=== PATIENT | male | born 1960 | race Two or more races ===

== ENCOUNTER 2024-09-08 07:22 | Inpatient (IN) | payer BC ==
[~2024-09-08] VITALS: Ht 170.2 cm; Wt 97.4 kg
[2024-09-08 08:57] LABS: Basophils # (auto) 0 10 ^3/uL (0-0.2); Basophils % (auto) 1.2 % (0.0-2.0); Eosinophils # (auto) 0.2 10 ^3/uL (0-0.8); Eosinophils % (auto) 6.1 % (0.0-7.0); Hematocrit 46.8 % (41.0-53.0); Hemoglobin 16.1 g/dL (13.5-17.5); Lymphocytes # (auto) 1.1 10 ^3/uL (0.4-5.4); Lymphocytes % (auto) 26.2 % (10.0-50.0); Mean Corpuscular Hemoglobin 28.8 pg (28.0-32.0); Mean Corpuscular Hgb Conc. 34.4 g/dL (32.0-36.0); Mean Corpuscular Volume 83.7 fL (80.0-100.0); Monocytes # (auto) 0.4 10 ^3/uL (0-1.3); Neutrophils # (auto) 2.4 10 ^3/uL (1.6-8.6); Neutrophils % (auto) 57.5 % (37.0-80.0); Nucleated Red Blood Cells % 0.1 %; Platelet Count (auto) 299 10^3/uL (140-450); Red Cell Distribution Width 13.5 % (11.8-14.3); White Blood Cell 4.1 10^3/uL (4.4-10.8)
[2024-09-08 09:04] LABS: Urine Bacteria None Seen /hpf (None Seen)
[2024-09-08 09:08] LABS: Chloride 106 mmol/L (98-107); Potassium 3.8 mmol/L (3.5-5.1); Sodium 143 mmol/L (136-145)
[2024-09-08 09:09] LABS: Anion Gap 10 (5-15); Calcium 9.7 mg/dL (8.7-10.4); Carbon Dioxide 27 mmol/L (20-31)
--- NOTE | 2024-09-08 09:09 | ED.PDOC ---
Musculoskeletal HPI Comments 64 year old male with a Hx of CVA, and, lEa-Renee was BIB for the c/c of Left Arm tingling and Numbness. Pt states his symptoms have been onset for the past 3x days. Pt also notes on currently having some chest pressure, being light headed and blurry vision. No other associated symptoms, modifiers, recent injuries or sick contacts present at this time. Chief Complaint: Upper Extremity Time Seen by MD: 09:04 Reviewed Notes: Nurses Notes, Medications, Allergies Allergies: Coded Allergies: NO KNOWN ALLERGIES (Unverified , 09/08/24) Information Source: Patient, Spouse Mode of Arrival: Ambulatory Location: Left Extremity Location: Arm Timing: Days Prehospital treatment: None Severity: Mild Able to Move Extremity: Yes Bear Weight: Fully Pain: Mild Hand Dominance: Right Mechanism: None Circumstances: Other Onset of Symptoms: Spontaneous Symptoms: Pain DVT Risk Factors: NONE Last Tetanus: Unknown Associated signs and symptoms: Arm pain, Weakness, SOB, Chest pain Past Medical History PAST MEDICAL HISTORY: CVA Surgical History: Denies all surgeries Family History Family History: Reviewed,noncontributory to illness, No family hx of Cancer, No family hx of DM, No family hx of Heart camila, No family hx of HTN, No family hx ofKidney camila, No family hx of Liver camila, No family hx of Lung camila, No family hx of Stroke Social History Smoker: Non-Smoker Alcohol: Denies ETOH Use Drugs: Denies Drug Use Lives In: Home Constitutional: denies: chills, diaphoresis, fatigue, fever, malaise, sweats, weakness, others EENTM: reports: blurred vision; denies: double vision, ear bleeding, ear discharge, ear drainage, ear pain, ear ringing, eye pain, eye redness, hearing loss, mouth pain, mouth swelling, nasal discharge, nose bleeding, nose congestion, nose pain, photophobia, tearing, throat pain, throat swelling, voice changes, others Respiratory: denies: cough, hemoptysis, orthopnea, SOB at rest, shortness of breath, SOB with excertion, stridor, wheezing, others Cardiovascular: denies: chest pain, dizzy spells, diaphoresis, Dyspnea on exertion, edema, irregular heart beat, left arm pain, lightheadedness, pal pitations, PND, syncope, others Gastrointestinal: denies: abdomen distended, abdominal pain, blood streaked bowels, constipated, diarrhea, dysphagia, difficulty swallowing, hematemesis, melena, nausea, poor appetite, poor fluid intake, rectal bleeding, rectal pain, vomiting, others Genitourinary: denies: burning, dysuria, flank pain, frequency, hematuria, incontinence, penile discharge, penile sore, pain, testicle pain, testicle swelling, urgency, others Neurological: reports: headache, others (light headed); denies: dizziness, fainting, left sided numbness, left sided weakness, numbness, paresthesia, pre- existing deficit, right sided numbness, right sided weakness, seizure, speech problems, tingling, tremors, weakness Musculoskeletal: denies: back pain, gout, joint pain, joint swelling, muscle pain, muscle stiffness, neck pain, others Integumetry: denies: bruises, change in color, change in hair/nails, dryness, laceration, lesions, lumps, rash, wounds, others Allergic/Immunocompromised: denies: Difficulty Healing, Frequent Infections, Hives, Itching, others Hematologic/Lymphatic: denies: anemia, blood clots, easy bleeding, easy bruising, swollen glands, others Endocrine: denies: excessive hunger, excessive sweating, excessive thirst, excessive urination, flushing, intolerance to cold, intolerance to heat, unexplained weight gain, unexplained weight loss, others Psychiatric: denies: anxiety, bipolar disorder, depression, hopeless, panic disorder, schizophrenia, sleepless, suicidal, others All Other Systems: Reviewed and Negative Physical Exam General Appearance: Mild Distress, Normal, Obese HEENT: Normal ENT Inspection, Pharynx Normal, TMs Normal Neck: Full Range of Motion, Non-Tender, Normal Respiratory: Chest Non-Tender, Lungs Clear, No Respiratory Distress, Normal Breath Sounds Cardiovascular: No Edema, No JVD, No Murmur, Normal Peripheral Pulses, Regular Rate/Rhythm Breast Exam: Deferred Gastrointestinal: Non Tender, No Pulsatile Mass, Normal Bowel Sounds, Soft Genitalia: Deferred Pelvic: Deferred Rectal: Deferred Extremities: No calf tenderness, Normal range of motion, Non-tender, No pedal edema Musculoskeletal : Apperance: Normal Neurologic: Alert, No Motor Deficits, Normal Mood Cerebellar Function: Normal Reflexes: Normal Skin: Dry, Normal Color, Warm Lymphatic: No Adenopathy Was a procedure done? Was a procedure done?: No Differential Diagnosis EXT Differential Diagnosis: CHF, Myocardial Infarction, Septic X-Ray, Labs, Meds, VS Vital Signs Date Time Temp Pulse Resp B/P (MAP) Pulse Ox O2 Delivery O2 Flow Rate FiO2 09/08/24 09:05 55 18 96 Room Air 09/08/24 09:05 98.4 55 18 169/94 (119) 96 98.4 09/08/24 08:10 98.6 56 18 162/87 (112) 95 98.6 Lab Test 09/08/24 09:47 09/08/24 08:47 09/08/24 08:35 Range/Units Troponin I High Sensitivity 15 17 </=54 ng/L White Blood Count 4.1 L 4.4-10.8 10^3/uL Red Blood Count 5.60 4.5-5.90 10^6/uL Hemoglobin 16.1 13.5-17.5 g/dL Hematocrit 46.8 41.0-53.0 % Mean Corpuscular Volume 83.7 80.0-100.0 fL Mean Corpuscular Hemoglobin 28.8 28.0-32.0 pg Mean Corpuscular Hemoglobin Concent 34.4 32.0-36.0 g/dL Red Cell Distribution Width 13.5 11.8-14.3 % Platelet Count 299 140-450 10^3/uL Mean Platelet Volume 8.1 6.9-10.8 fL Neutrophils (%) (Auto) 57.5 37.0-80.0 % Lymphocytes (%) (Auto) 26.2 10.0-50.0 % Monocytes (%) (Auto) 9.0 0.0-12.0 % Eosinophils (%) (Auto) 6.1 0.0-7.0 % Basophils (%) (Auto) 1.2 0.0-2.0 % Neutrophils # (Auto) 2.4 1.6-8.6 10 ^3/uL Lymphocytes # (Auto) 1.1 0.4-5.4 10 ^3/uL Monocytes # (Auto) 0.4 0-1.3 10 ^3/uL Eosinophils # (Auto) 0.2 0-0.8 10 ^3/uL Basophils # (Auto) 0 0-0.2 10 ^3/uL Nucleated Red Blood Cells 0.1 % Sodium Level 143 136-145 mmol/L Potassium Level 3.8 3.5-5.1 mmol/L Chloride Level 106 98-107 mmol/L Carbon Dioxide Level 27 20-31 mmol/L Anion Gap 10 5-15 Blood Urea Nitrogen 13 9-23 mg/dL Creatinine 1.23 0.700-1.30 mg/dL Glomerular Filtration Rate Calc 66 >90 mL/min BUN/Creatinine Ratio 10.6 10.0-20.0 Serum Glucose 105 74-106 mg/dL Calcium Level 9.7 8.7-10.4 mg/dL Urine Color Light-yellow Yellow Urine Clarity Clear Clear Urine pH 5.5 5.0-9.0 Urine Specific [place] 1.022 1.001-1.035 Urine Protein Negative Negative Urine Ketones Negative Negative Urine Blood Negative Negative /uL Urine Nitrite Negative Negative Urine Bilirubin Negative Negative Urine Urobilinogen Normal Negative mg/dL Urine Leukocyte Esterase Negative Negative /uL Urine RBC 4 0 - 3 /hpf Urine Microscopic WBC 3 0-3 /HPF Urine Squamous Epithelial Cells None seen <5 /hpf Urine Calcium Oxalate Crystals Few None Seen Urine Bacteria None seen None Seen /hpf Urine Glucose Normal Normal mg/dL Time of 1ST Reevaluation: 09:35 Reevaluation 1ST: Unchanged Patient Education/Counseling: Diagnosis, Treatment Family Education/Counseling: Diagnosis, Treatment Departure 1 Departure Time of Disposition: 10:27 (Patient presents with left arm numbness and tingling concerning for possible TIA or CVA. Patient's workup so far is benign including benign labs and benign CT scan. We will admit patient for further workup and expert consultation) Impression: Primary Impression: Arm paresthesia, left Additional Impressions: Left-sided chest pain Left-sided headache Disposition: ADMITTED INPATIENT Admit to: Med Surg Condition: Guarded Critical Care Note Critical Care Time?: Yes Critical care comment: Concern for CVA Authorized and Performed by: Steve Thorpe MD Total critical care time: Approximately 42 minutes Due to a high probability of clinically significant, life threatening deterioration, the patient required my highest level of preparedness to intervene emergently and I personally spent this critical care time directly and personally managing the patient. This critical care time included obtaining a history; examining the patient; pulse oximetry; ordering and review of studies; arranging urgent treatment with development of a management plan; evaluation of patient's response to treatment; frequent reassessment; and, discussions with other providers. This critical care time was performed to assess and manage the high probability of imminent, life-threatening deterioration that could result in multi-organ failure. It was exclusive of separately billable procedures and treating other patients and teaching time. Please see my other sections and the rest of the note for further information on patient assessment and treatment. Stability Stability form required: No Heart Score Heart Score: Heart Score Response (Comments) Value History N/A 0 EKG N/A 0 Age N/A 0 Risk Factors N/A 0 Troponin N/A 0 Total 0 I personally scribed for STEVE THORPE MD ([email or web address]) on 09/08/24 at 09:09. Electronically submitted by Kirill Vincent ([email or web address]). STEVE THORPE MD Sep 08, 2024 09:09
[2024-09-08 09:14] LABS: BUN/Creatinine Ratio 10.6 (10.0-20.0); Blood Urea Nitrogen 13 mg/dL (9-23); Glucose 105 mg/dL (74-106)
--- NOTE | 2024-09-08 09:21 | DVH ---
CHEST RADIOGRAPH Indication: dizziness Technique: Single frontal view of the chest was obtained COMPARISON: None FINDINGS: Lines and Tubes: None Lungs: Clear Pleura: No effusion. No pneumothorax. Cardiomediastinal contours: Unremarkable Bones: Unremarkable IMPRESSION: No acute disease.
--- NOTE | 2024-09-08 09:27 | DVH ---
EXAM: CT HEAD WITHOUT CONTRAST INDICATION: dizziness TECHNIQUE: CT of the head without intravenous contrast. Radiation Dose Information: CT Dose: CTDI volume is 57.57 mGy. Dose-length product is 1037.9 mGy*cm The dose indicators for CT are the volume Computed Tomography (CT) Dose Index (CTDIvol) and the Dose Length Product (DLP), and are measured in units of mGy and mGy-cm, respectively. These indicators are not patient dose, but values generated from the CT scanner acquisition factors. The report includes radiation exposure data for exposures received during this examination. COMPARISON: None FINDINGS: There is no evidence of acute intracranial hemorrhage, extra-axial collection, mass effect, midline s hift, herniation or hydrocephalus. The ventricles, sulci and cisterns are age appropriate. The cervantes-white differentiation is intact. Patchy periventricular and subcortical white matter hypoattenuation is nonspecific but may be related to small vessel ischemic disease. The visualized paranasal sinuses and mastoid air cells are clear. The surrounding soft tissues and osseous structures are unremarkable. IMPRESSION: No acute intracranial abnormality.
[2024-09-08 09:29] LABS: Urine Blood Negative /uL (Negative); Urine Clarity Clear (Clear); Urine Color Light-Yellow (Yellow); Urine Protein, UAD Negative (Negative); Urine Specific Gravity 1.022 (1.001-1.035); Urine Squamous Epithelial Cell None Seen /hpf (<5); Urine Urobilinogen Normal (Negative); Urine WBC 3 /HPF (0-3); Urine pH 5.5 (5.0-9.0)
[2024-09-08] MEDS ORDERED: DOCUSATE SOD 100 MG CAP PO PRN (13:00)
[2024-09-08] MEDS ORDERED: ONDANSETRON HCL 4 MG/2 ML VIAL IV PRN (13:00)
[2024-09-08] MEDS ORDERED: MORPHINE SULFATE INJ 2 MG/ml SYRG IV PRN (13:00)
[2024-09-08] MEDS ORDERED: NITROGLYCERIN 0.4 MG SL TAB SL PRN (13:00)
[2024-09-08] MEDS ORDERED: AMLO1TAB22 PO (13:03)
[2024-09-08] MEDS ORDERED: LEVO-849 PO (13:03)
[2024-09-08] MEDS ORDERED: AMOX500T92 PO (13:03)
[2024-09-08] MEDS ORDERED: LISI40TA16 PO (13:03)
[2024-09-08] MEDS ORDERED: PRAV20TA3 PO (13:03)
--- NOTE | 2024-09-08 13:20 | DVHHP2 ---
History of Present Illness Reason for Visit: left arm numbness and tingling History of Present Illness Bubba Menchaca is a 64-year-old male with past medical history of hypertension, hyperlipidemia, CVA, and hypothyroidism, who came in with complaints of left arm numbness and tingling. Patient states he has been experiencing the numbness and tingling for about 3 days. He has also been experiencing intermittent headaches, and blurred vision. Patient's blood pressure has been elevated while in ER, he states he took his normal home medications. Cardiovascular: HTN, hyperipidemia [employer]: CVA Endocrine: Hypothyroidism Past Surgical History: Other (Prstate surgery) Smoke: No ALCOHOL: none Drugs: None Lives: with Family Domestic Violence: Neg Review of Systems Constitutional: Yes: Other (headache); No: Fever, Chills, Sweats, Weakness, Malaise Eyes: No: Pain, Vision change, Conjunctivae inflammation, Eyelid inflammation, Other, Redness ENT: No: Ear pain, Ear discharge, Nose pain, Nose discharge, Nose congestion, Mouth pain, Mouth swelling, Throat pain, Throat swelling, Other Respiratory: No: Cough, Dry, Shortness of breath, SOB with excertion, Wheezing, Hemoptysis, Pleuritic Pain, Sputum, Wheezing, Other Cardiovascular: No: Chest Pain, Palpitations, Orthopnea, Paroxysmal Noc. Dyspnea, Edema, Lt Headedness, Other Gastrointestinal: No: Nausea, Vomiting, Abdominal Pain, Diarrhea, Constipation, Melena, Hematochezia, Other Genitourinary: No Dysuria, No Frequency, No Incontinence, No Hematuria, No Retention, No Other Musculoskeletal: No: other, neck pain, shoulder pain, arm pain, back pain, hand pain, leg pain, foot pain Skin: No: Rash, Lesions, Jaundice, Bruising, Other Neurological: Numbness (left arm); No: Weakness, Incoordination, Change in speech, Confusion, Seizures, Other Allergies: Coded Allergies: NO KNOWN ALLERGIES (Unverified , 09/08/24) Medications Current Medications Medications Dose Ordered Sig/Josias Route Start Time Stop Time Status Last Admin Dose Admin Acetaminophen/ Hydrocodone Bitart 1 tab Q4HP PRN PO 09/08/24 13:00 UNV Ondansetron HCl 4 mg Q4HP PRN IV 09/08/24 13:00 UNV Docusate Sodium 100 mg BIDPRN PRN PO 6/17/25 13:00 UNV Acetaminophen 650 mg Q6HP PRN PO 09/08/24 13:00 UNV Nitroglycerin 0.4 mg Q5MINP PRN SL 09/08/24 13:00 UNV Morphine Sulfate 2 mg Q30M PRN IV 09/08/24 13:00 UNV Amlodipine Besylate 5 mg DAILY PO 09/09/24 10:00 UNV Amoxicillin/ Clavulanate Potassium 500 mg TID PO 09/08/24 14:00 UNV Levothyroxine Sodium 100 mcg DAILY PO 09/09/24 10:00 UNV Pravastatin Sodium 40 mg HS PO 09/08/24 22:00 UNV Patient Own Medication 1 tab DAILY PO 09/09/24 10:00 UNV Exam Vital Signs Vital Signs Date Time Temp Pulse Resp B/P (MAP) Pulse Ox O2 Delivery O2 Flow Rate FiO2 09/08/24 11:12 97.9 50 16 180/95 (123) 96 97.9 09/08/24 09:05 Room Air General Appearance: Alert, Oriented X3, Cooperative HEENT: Atraumatic, PERRLA, EOMI Respiratory: Clear to auscultation, Normal air movement Cardiovascular: Regular rate, Normal S1, Normal S2, No murmurs Abdominal: Normal bowel sounds, Soft, No tenderness, No hepatospenomegaly Extremities: No clubbing, No cyanosis, No edema, Normal pulses, No tenderness/swelling, Other (left arm numbness and tingling) Skin: No rashes, No breakdown, No significant lesion Neuro: Normal gait, Normal speech, Strength at 5/5 X4 ext, Normal tone, Sensation intact Psych/Mental Status: Mental status NL, Mood NL Labs/Xrays Labs Test 09/08/24 11:57 09/08/24 08:47 09/08/24 08:35 Range/Units Troponin I High Sensitivity 14 </=54 ng/L White Blood Count 4.1 L 4.4-10.8 10^3/uL Red Blood Count 5.60 4.5-5.90 10^6/uL Hemoglobin 16.1 13.5-17.5 g/dL Hematocrit 46.8 41.0-53.0 % Mean Corpuscular Volume 83.7 80.0-100.0 fL Mean Corpuscular Hemoglobin 28.8 28.0-32.0 pg Mean Corpuscular Hemoglobin Concent 34.4 32.0-36.0 g/dL Red Cell Distribution Width 13.5 11.8-14.3 % Platelet Count 299 140-450 10^3/uL Mean Platelet Volume 8.1 6.9-10.8 fL Neutrophils (%) (Auto) 57.5 37.0-80.0 % Lymphocytes (%) (Auto) 26.2 10.0-50.0 % Monocytes (%) (Auto) 9.0 0.0-12.0 % Eosinophils (%) (Auto) 6.1 0.0-7.0 % Basophils (%) (Auto) 1.2 0.0-2.0 % Neutrophils # (Auto) 2.4 1.6-8.6 10 ^3/uL Lymphocytes # (Auto) 1.1 0.4-5.4 10 ^3/uL Monocytes # (Auto) 0.4 0-1.3 10 ^3/uL Eosinophils # (Auto) 0.2 0-0.8 10 ^3/uL Basophils # (Auto) 0 0-0.2 10 ^3/uL Nucleated Red Blood Cells 0.1 % Sodium Level 143 136-145 mmol/L Potassium Level 3.8 3.5-5.1 mmol/L Chloride Level 106 98-107 mmol/L Carbon Dioxide Level 27 20-31 mmol/L Anion Gap 10 5-15 Blood Urea Nitrogen 13 9-23 mg/dL Creatinine 1.23 0.700-1.30 mg/dL Glomerular Filtration Rate Calc 66 >90 mL/min BUN/Creatinine Ratio 10.6 10.0-20.0 Serum Glucose 105 74-106 mg/dL Calcium Level 9.7 8.7-10.4 mg/dL Urine Color Light-yellow Yellow Urine Clarity Clear Clear Urine pH 5.5 5.0-9.0 Urine Specific [place] 1.022 1.001-1.035 Urine Protein Negative Negative Urine Ketones Negative Negative Urine Blood Negative Negative /uL Urine Nitrite Negative Negative Urine Bilirubin Negative Negative Urine Urobilinogen Normal Negative mg/dL Urine Leukocyte Esterase Negative Negative /uL Urine RBC 4 0 - 3 /hpf Urine Microscopic WBC 3 0-3 /HPF Urine Squamous Epithelial Cells None seen <5 /hpf Urine Calcium Oxalate Crystals Few None Seen Urine Bacteria None seen None Seen /hpf Urine Glucose Normal Normal mg/dL CHEST RADIOGRAPH FINDINGS: Lines and Tubes: None Lungs: Clear Pleura: No effusion. No pneumothorax. Cardiomediastinal contours: Unremarkable Bones: Unremarkable IMPRESSION: No acute disease. EXAM: CT HEAD WITHOUT CONTRAST FINDINGS: There is no evidence of acute intracranial hemorrhage, extra-axial collection, mass effect, midline shift, herniation or hydrocephalus. The ventricles, sulci and cisterns are age appropriate. The cervantes-white differentiation is intact. Patchy periventricular and subcortical white matter hypoattenuation is nonspecific but may be related to small vessel ischemic disease. The visualized paranasal sinuses and mastoid air cells are clear. The surrounding soft tissues and osseous structures are unremarkable. IMPRESSION: No acute intracranial abnormality. Assessment/Plan Assessment/Plan Assessment: Arm paresthesia, left, Uncontrolled hypertension, Headache, Hypothyroidism, Plan: Admit to Tele, CT cervical neck, Continue PO antibiotics from dental work patient had completed yesterday, Monitor on Tele for any atrial fibrillation, TSH, PRN antihypertensives, Home medications reconciled, Plan discussed with: Patient, Spouse My Orders Orders - GERSON SEVILLA Procedure Category Date Status Time Admit ADMIT 09/08/24 Transmitted 12:56 Code Status CODE 09/08/24 Transmitted 12:56 2 Gm Sodium Diet DIET 09/08/24 Transmitted Lunch Hydrocodone-Acet PHA 09/08/24 Logged 5/325mg Tab (Kemp 13:00 Ondansetron Hcl PHA 09/08/24 Logged (Zofran) 13:00 Docusate Sodium PHA 09/08/24 Logged Capsule (Colace 13:00 Complete Blood Count LAB 09/09/24 Verified 04:00 Comprehensive LAB 09/09/24 Verified Metabolic Panel 04:00 Condition: Serious [facility] 09/08/24 In Process 12:56 Acetaminophen Tablet [facility] 09/08/24 Logged (Tylenol Tablet) 13:00 Nitroglycerin PHA 09/08/24 Logged Sublingual (Ntrostat 13:00 Morphine Sulfate PHA 09/08/24 Logged Injection 13:00 Stat Ekg For Chest [facility] 09/08/24 In Process Pain 12:56 Notify Md Of Changes [facility] 09/08/24 In Process From Base 12:56 Bowling Ball Finisher For [facility] 09/08/24 In Process 24 Hours 12:56 Emergency Dysrhythmia [facility] 09/08/24 In Process Protocol 12:56 Rhythm Strips Once [facility] 09/08/24 In Process Every Shift 12:56 Oxygen By Nasal RT 09/08/24 Transmitted Cannula 12:56 Amlodipine Tablet [facility] 09/09/24 Logged (Norvasc Tablet) 10:00 Amoxicillin/Clavulanate PHA 09/08/24 Logged Tablet (Augmenti 14:00 Levothyroxine Tablet [facility] 09/09/24 Logged (Synthroid Tablet) 10:00 Pravastatin Sodium [facility] 09/08/24 Logged Tablet (Pravachol Tab 22:00 (Nf) Lisinopril [facility] 09/09/24 Logged 10:00 Date of Service: Sep 08, 2024 Billing Provider: GERSON SEVILLA Common Visit Codes: 81821-[id number] INP/OBS CARE (MOD) GERSON SEVILLA Sep 08, 2024 13:20
--- NOTE | 2024-09-08 13:55 | DVH ---
EXAM: CT CERVICAL WITHOUT CONTRAST INDICATION: left arm numbness and tingling EXAM DATE: 09/08/2024 01:20 PM COMPARISON: None TECHNIQUE: Noncontrast axial CT images of the cervical spine were performed. Sagittal and coronal ref ormatted images were obtained. Radiation optimization: All CT scans at this facility use at least one of these dose optimization techniques: automated exposure control mA and/or kV adjustment per patie nt size (includes targeted exams where dose is matched to clinical indication) or iterative reconstr uction. Radiation Dose Information: CT Dose: CTDI volume is 23.69 mGy. Dose-length product is 580.04 mGy*cm FINDINGS: No fracture or listhesis of the cervical spine. There is moderate degenerative disc disease C5-C6 and C6-C7. No significant spinal canal stenosis or neural foraminal stenosis at any level in the cervic al spine. Brayan cisterna magna incidentally noted. 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 IMPRESSION: 1. No fracture of the cervical spine. 2. Degenerative disc disease and facet arthropathy without high-grade spinal canal stenosis or neural foraminal stenosis at any level in the cervical spine. No findings are identified here to explain th e patient's left upper extremity symptoms.
[2024-09-08] MEDS ORDERED: amLODIPine BESYLATE 5 MG TAB PO SCH (14:12)
[2024-09-08] MEDS: amLODIPine BESYLATE 5 MG TAB PO ONE ×2 (15:48→22:19)
[2024-09-08] MEDS: AMOXICILLIN/CLAVULAN 500 MG TAB PO SCH (16:26)
[2024-09-08 19:46] VITALS: PULSE 60; RESP 17; O2SAT 96
[2024-09-08 20:00] VITALS: PULSE 55
[2024-09-08] MEDS: hydrALAZINE HCL 20 MG/ML VL IV PRN (20:39)
[2024-09-08] MEDS: PRAVASTATIN SODIUM 20 MG TAB PO SCH (21:31)
[2024-09-08 22:00] VITALS: PULSE 60; RESP 17; O2SAT 96
[2024-09-08] MEDS: HYDROcodone-ACET 5/325MG TAB PO PRN (22:27)
[2024-09-09] VITALS (7 sets, daily range): BP systolic 134–163; BP diastolic 84–89; PULSE 60–89; RESP 14–18; TEMP 97.6–98.1; O2SAT 94–98
[2024-09-09] MEDS: ACETAMINOPHEN 325 MG TAB PO PRN (01:23)
[2024-09-09] MEDS: LEVOTHYROXINE SODIUM 100 MCG TAB PO SCH (05:37)
[2024-09-09 07:10] LABS: Basophils # (auto) 0 10 ^3/uL (0-0.2); Eosinophils # (auto) 0.3 10 ^3/uL (0-0.8); Eosinophils % (auto) 5.7 % (0.0-7.0); Hematocrit 49.4 % (41.0-53.0); Hemoglobin 17.2 g/dL (13.5-17.5); Lymphocytes # (auto) 1.2 10 ^3/uL (0.4-5.4); Lymphocytes % (auto) 26.5 % (10.0-50.0); Mean Corpuscular Hgb Conc. 34.8 g/dL (32.0-36.0); Mean Corpuscular Volume 83.2 fL (80.0-100.0); Monocytes # (auto) 0.4 10 ^3/uL (0-1.3); Monocytes % (auto) 8.5 % (0.0-12.0); Neutrophils # (auto) 2.6 10 ^3/uL (1.6-8.6); Neutrophils % (auto) 58.3 % (37.0-80.0); Nucleated Red Blood Cells % 0.2 %; Platelet Count (auto) 312 10^3/uL (140-450); Red Blood Cells 5.93 10^6/uL (4.5-5.90); Red Cell Distribution Width 13.5 % (11.8-14.3); White Blood Cell 4.5 10^3/uL (4.4-10.8)
[2024-09-09 07:38] LABS: Alanine Aminotransferase 36 U/L (7-40); Alkaline Phosphatase 71 U/L (46-116); Anion Gap 12 (5-15); Aspartate Aminotransferase 33 U/L (<34); BUN/Creatinine Ratio 9.1 (10.0-20.0); Blood Urea Nitrogen 10 mg/dL (9-23); Calcium 10.1 mg/dL (8.7-10.4); Carbon Dioxide 26 mmol/L (20-31); Chloride 105 mmol/L (98-107); Potassium 3.6 mmol/L (3.5-5.1); Sodium 143 mmol/L (136-145)
[2024-09-09 07:41] LABS: Albumin 4.9 g/dL (3.2-4.8); Bilirubin, Total 1.8 mg/dL (0.2-1.0); Glucose 109 mg/dL (74-106)
[2024-09-09] MEDS: amLODIPine BESYLATE 5 MG TAB PO SCH (09:28)
[2024-09-09] MEDS: LISINOPRIL 20 MG TAB PO SCH (09:29)
[2024-09-09] MEDS ORDERED: amLODIPine BESYLATE 5 MG TAB PO SCH (10:00)
--- NOTE | 2024-09-09 15:24 | DVH ---
PROCEDURE: MRI CERVICAL WO CONTRAST Indication: Neck pain COMPARISON: CT CERVICAL WITHOUT CONTRAST on DOS: 09/08/24 TECHNIQUE: Multiplanar multisequence images of the the cervical spine are obtained. FINDINGS: The cervical vertebral body heights are maintained. Straightening of normal cervical spine curvature. Klko-qc-alpvednk multilevel disc space narrowing and desiccation. No abnormal marrow edema. No prev ertebral edema. Atlantooccipital, atlantoaxial articulations intact. C2-3: No spinal canal stenosis. Mild right neural foraminal stenosis secondary to facet and uncovert ebral hypertrophy. C3-4: Small disc osteophyte complex. No spinal canal stenosis. Mild bilateral neural foraminal steno sis secondary to facet and uncovertebral hypertrophy. C4-5: Small disc osteophyte complex. No spinal canal stenosis. Mild bilateral neural foraminal steno sis secondary to facet and uncovertebral hypertrophy. C5-6: Small disc osteophyte complex. No spinal canal stenosis. Moderate bilateral neural foraminal s tenosis secondary to facet and uncovertebral hypertrophy. C6-7: Small disc osteophyte complex. No spinal canal stenosis. Oiuj-ho-lnvhuinv bilateral neural fora tanisha stenosis, [id number]-ommbcop-ubnk-left secondary to facet and uncovertebral hypertrophy. C7-T1: Small disc osteophyte complex. Right perineural sleeve cysts. No spinal canal, neural forami nal stenosis. IMPRESSION: Ouri-hf-gcsprxan cervical degenerative disc disease. No high-grade spinal canal stenosis. Qbqb-ff-uqgzrbee multilevel neural foraminal stenosis.
[2024-09-09] MEDS ORDERED: cloNIDine HCL 0.1 MG TAB PO SCH (16:45)
[2024-09-09] MEDS ORDERED: cloNIDine HCL 0.1 MG TAB PO PRN ×4 (17:00→21:30)
[2024-09-09] MEDS: ASPirin 81 mg TAB PO ONE (17:04)
[2024-09-09] MEDS ORDERED: hydrALAZINE HCL 20 MG/ML VL IV PRN (21:00)
[2024-09-09] MEDS: hydroCHLOROthiazide 25 MG TAB PO ONE (21:36)
[2024-09-09] MEDS: ENOXAPARIN SOD 40 MG/0.4 ML SYRINGE SC ONE (21:45)
--- NOTE | 2024-09-09 21:46 | DVHPNRES ---
Progress Note Date Seen: Sep 09, 2024 Resident Creating Document: KESHAV MEJIA DANNI Has the PT tested + for MRSA If YES, has PT been informed?: No Medical Necessity Reason Pt with a Central, PICC or Fol: No Subjective Review of Systems Bubba Menchaca is a 64-year-old male with past medical history of hypertension, hyperlipidemia, CVA, and hypothyroidism, who came in with complaints of left arm numbness, tingling and weakness. Patient states he has been experiencing the episodes for about 3 days. He has also been experiencing intermittent headaches, and blurred vision. Patient's blood pressure has been elevated while in ER, he states he took his normal home medications. Past medical history: HTN, hyperipidemia, CVA and Hypothyroidism Patient seen and examined at the bedside. Patient reports of an episode of left upper limb weakness and numbness which lasted for 3-4 hours. Currently, he reports mild discomfort of left upper limb. Patient reports: No new complaints, Feels better Changes from previous H/P or p: No Changes Objective vital signs Vital Sign Date Time Temp Pulse Resp B/P (MAP) Pulse Ox O2 Delivery O2 Flow Rate FiO2 09/09/24 20:00 75 18 96 Room Air* 0 21 09/09/24 17:00 98.1 159/84 (109) 98.1 Total Intake and Output 09/08/24 09/08/24 09/09/24 15:00 23:00 07:00 Intake Total 300 ml Balance 300 ml medications Current Medications Medications Dose Ordered Sig/Josias Route Start Time Stop Time Status Last Admin Dose Admin Acetaminophen/ Hydrocodone Bitart 1 tab Q4HP PRN PO 09/08/24 13:00 09/08/24 22:27 1 TAB Ondansetron HCl 4 mg Q4HP PRN IV 09/08/24 13:00 Docusate Sodium 100 mg BIDPRN PRN PO 09/08/24 13:00 Acetaminophen 650 mg Q6HP PRN PO 09/08/24 13:00 09/09/24 01:23 650 MG Amoxicillin/ Clavulanate Potassium 500 mg TID PO 09/08/24 14:00 09/09/24 21:12 500 MG Levothyroxine Sodium 100 mcg QAM PO 09/09/24 07:00 09/09/24 05:37 100 MCG Pravastatin Sodium 40 mg HS PO 09/08/24 22:00 09/09/24 21:12 40 MG Lisinopril 40 mg DAILY PO 09/09/24 10:00 09/09/24 09:29 40 MG Amlodipine Besylate 10 mg DAILY PO 09/09/24 10:00 09/09/24 09:28 10 MG Aspirin 81 mg DAILY PO 09/10/24 10:00 Hydralazine HCl 5 mg Q6HP PRN IV 09/09/24 21:00 Examination General Appearance: Alert, Oriented X3, Cooperative, No acute distress HEENT: Atraumatic, PERRLA, EOMI, Mucous membrane moist/pink Respiratory: Clear to auscultation, Normal air movement Cardiovascular: Regular rate, Normal S1, Normal S2, No murmurs, no chest wall tenderness Abdominal: Normal bowel sounds, Soft, No tenderness, No hepatospenomegaly, No masses Extremities: No clubbing, No cyanosis, No edema, Normal pulses, No tenderness/swelling Skin: No rashes, No breakdown, No significant lesion Neuro: Normal gait, Normal speech, Strength at 5/5 X4 ext, Normal tone, Sensation intact, Cranial nerves 3-12 NL, Reflexes 2+, left upper limb numbness Psych/Mental Status: Mental status NL, Mood NL laboratory and microbiology Laboratory Tests 09/09/24 06:34 Test 09/09/24 06:34 Range/Units Serum Glucose 109 H 74-106 mg/dL Labs and/or images reviewed: Labs reviewed by me, Image(s) reviewed by me Problem List/Assessment/Plan Problem List/Assessment/Plan Hypertensive emergency leading to TIA Possible TIA History of ischemic stroke Small-vessel ischemic disease Obesity Hypertension Dyslipidemia Hypothyroidism Hyperbilirubinemia * Patient reports episodes of headache, blurry vision and left upper limb numbness and weakness which lasted for 3-4 hours * EKGs shows, normal sinus rhythm with no significant ST or T-wave changes * Head CT scan shows, hypodensity in the cerebellum (hypoattenuated area), suggesting chronic infarct or encephalomalacia with patchy periventricular and subcortical white matter hypoattenuation is nonspecific but may be related to small vessel ischemic disease * Neck MRI shows, [id number] cervical degenerative disc disease * ABCD2 score for TIA: 4 score, at moderate risk of developing stroke, requires inpatient care * Cranial nerves are grossly normal Plan/recommendation * Aspirin 81 mg daily * Pravastatin 40 mg daily * Amlodipine 10 mg daily, lisinopril 40 mg daily, hydrochlorothiazide 25 mg daily and hydralazine p.r.n. for blood pressure * We will check echocardiogram, and carotid Doppler * Continue home meds including levothyroxine DIET: Cardiac diet DVT PROPHYLAXIS: Lovenox CODE STATUS: Goal of care discussed for more than 18 minutes, full code DISPOSITION: Telemetry Patient's status and plan discussed with the patient and patient's at the bedside. Case discussed with Dr. Simon. Plan discussed with: Patient, Other (RN) My Orders My Orders Orders - KESHAV MEJIA RESDILAKHWINDER Procedure Category Date Status Time Aspirin Tablet PHA 09/10/24 In Process 10:00 Cervical Wo Contrast MRI 09/09/24 Resulted 13:56 Basic Metabolic Panel LAB 09/10/24 Verified 04:00 Complete Blood Count LAB 09/10/24 Verified 04:00 Hydralazine Injection PHA 09/09/24 In Process (Apresoline Inject 21:00 Date of Service: Sep 09, 2024 Billing Provider: JESSI SIMON MD Common Visit Codes: [id number] INP/OBS CARE(HIGH) KESHAV MEJIA RESDIENT Sep 09, 2024 21:46 JESSI SIMON MD Sep 11, 2024 15:17
[2024-09-10 01:37] VITALS: BP 147/91; PULSE 69
[2024-09-10 05:00] VITALS: BP 155/81; PULSE 67; RESP 18; TEMP 97.7; O2SAT 97
[2024-09-10 08:00] VITALS: PULSE 61
[2024-09-10 08:54] LABS: Basophils # (auto) 0 10 ^3/uL (0-0.2); Basophils % (auto) 0.6 % (0.0-2.0); Eosinophils # (auto) 0.2 10 ^3/uL (0-0.8); Eosinophils % (auto) 4.2 % (0.0-7.0); Hematocrit 48.3 % (41.0-53.0); Hemoglobin 16.7 g/dL (13.5-17.5); Lymphocytes # (auto) 1.3 10 ^3/uL (0.4-5.4); Lymphocytes % (auto) 23.8 % (10.0-50.0); Mean Corpuscular Hemoglobin 28.7 pg (28.0-32.0); Mean Corpuscular Hgb Conc. 34.6 g/dL (32.0-36.0); Mean Corpuscular Volume 83.1 fL (80.0-100.0); Monocytes # (auto) 0.5 10 ^3/uL (0-1.3); Monocytes % (auto) 8.2 % (0.0-12.0); Neutrophils # (auto) 3.5 10 ^3/uL (1.6-8.6); Neutrophils % (auto) 63.2 % (37.0-80.0); Nucleated Red Blood Cells % 0.1 %; Platelet Count (auto) 313 10^3/uL (140-450); Red Blood Cells 5.82 10^6/uL (4.5-5.90); Red Cell Distribution Width 13.5 % (11.8-14.3); White Blood Cell 5.5 10^3/uL (4.4-10.8)
--- NOTE | 2024-09-10 09:01 | DVH ---
Carotid Duplex Clinical History: TIA Comparison: None Technique: Duplex Doppler evaluation of the extracranial carotid and vertebral arteries including color Doppler and spectral/pulsed waveform analysis was performed. Findings: RIGHT SIDE: The peak systolic velocities are 97 cm/s in the CCA, 64 cm/s in the ICA. The ICA/CCA ratio is 0.7. The external carotid artery is patent with peak systolic velocity of 106 cm/s proximally. The subclavian artery is patent with peak systolic velocity of nv cm/s. There is appropriate antegrade flow in the right vertebral artery. LEFT SIDE: The peak systolic velocities are 111 cm/s in the CCA, 78 cm/s in the ICA. The ICA/CCA ratio is 0.7. The external carotid artery is patent with peak systolic velocity of 108 cm/s proximally. The subclavian artery is patent with peak systolic velocity of nv cm/s. There is appropriate antegrade flow in the left vertebral artery. IMPRESSION: No hemodynamically significant stenosis noted in the right carotid system. No hemodynamically significant stenosis noted in the left carotid system. Reference: Radiology 2003; 229:340-346 Normal ICA PSV is <125 cm/sec and no plaque or intimal thickening is visible sonographically addition al criteria include ICA/CCA PSV ratio <2.0 and ICA EDV <40 cm/sec <50% ICA stenosis ICA PSV is <125 cm/sec and plaque or intimal thickening is visible sonographically additional criteria include ICA/CCA PSV ratio <2.0 and ICA EDV <40 cm/sec 50-69% ICA stenosis ICA PSV is 125-230 cm/sec and plaque is visible sonographically additional criter ia include ICA/CCA PSV ratio of 2.0-4.0 and ICA EDV of 40-100 cm/sec 70% ICA stenosis but less than near occlusion ICA PSV is >230 cm/sec and visible plaque and luminal narrowing are seen at cervantes-scale and color Doppler ultrasound (the higher the Doppler parameters lie above the threshold of 230 cm/sec, the greater the likelihood of severe disease) additional criteria include ICA/CCA PSV ratio >4 and ICA EDV >100 cm/sec
[2024-09-10] MEDS: ASPirin 81 mg TAB PO SCH (09:03)
[2024-09-10 09:04] LABS: Anion Gap 10 (5-15); Carbon Dioxide 24 mmol/L (20-31); Chloride 106 mmol/L (98-107); Potassium 3.7 mmol/L (3.5-5.1); Sodium 140 mmol/L (136-145)
[2024-09-10 09:05] LABS: Calcium 10.3 mg/dL (8.7-10.4)
[2024-09-10 09:10] LABS: BUN/Creatinine Ratio 10.1 (10.0-20.0); Blood Urea Nitrogen 11 mg/dL (9-23)
[2024-09-10 09:11] LABS: Glucose 149 mg/dL (74-106); LDL Cholesterol 114 mg/dL (< 100); Triglycerides 219 mg/dL (< 150)
[2024-09-10 09:12] LABS: Cholesterol 192 mg/dL (< 200); HDL Cholesterol 46 mg/dL (40-59)
[2024-09-10 09:20] LABS: INR 0.98 (0.9-1.15); Partial Thromboplastin Time 28.9 SEC (24.5-34.5); Prothrombin Time 10.4 sec (9.3-11.8)
[2024-09-10 09:21] VITALS: BP 159/83; PULSE 67; RESP 18; TEMP 98.1; O2SAT 96
[2024-09-10 09:55] LABS: Opiate Scree,Urine Neg (NEGATIVE)
[2024-09-10 10:00] LABS: Amphetamine Screen, Urine Neg (NEGATIVE); Barbiturate Scree,Urine Neg (NEGATIVE); Benzodiazephine Screen, Urine Neg (NEGATIVE); Cocaine Screen, Urine Neg (NEGATIVE); Phencyclidine Screen, Urine Neg (NEGATIVE)
[2024-09-10 10:35] LABS: Cannabinoid Screen, Urine Neg (NEGATIVE)
[2024-09-10 10:50] LABS: Magnesium 1.8 mg/dL (1.6-2.6)
--- NOTE | 2024-09-10 10:50 | ECG ---
[facility] Test Date: 2024-09-08 Test Time: 07:53:22 Pat Name: ALEXIS MARVIN Department: ER Room: 0298T A Gender: M Script Reader: JASON : 1960 Requested By: KESHAV MEJIA Order Number: [id number] Reading MD: Govind Mann Measurements Intervals [place] Rate: 58 P: 47 [place]: 166 QRS: 21 QRSD: 86 T: 47 QT: 513 QTc: 504 Interpretive Statements Sinus rhythm Probable left atrial enlargement Abnormal R-wave progression, early transition Borderline T wave abnormalities Prolonged QT interval Electronically Signed On 09-11-2024 21:13:44 PDT by Govind Mann Please click the below link to view image of tracing.
[2024-09-10] MEDS ORDERED: AMLO1TAB23 PO (11:41)
[2024-09-10] MEDS ORDERED: ASPI-498 OR (11:41)
--- NOTE | 2024-09-10 11:42 | DVHDSRES ---
Discharge Summary Date of Admission Resident Creating Document: KESHAV MEJIA RESDILAKHWINDER Sep 08, 2024 at 13:03 Date of Discharge: Sep 10, 2024 Labs/Diagnostic Data: Laboratory Results Test 09/10/24 09:24 09/10/24 08:23 09/09/24 06:34 09/08/24 11:57 Urine Opiates Screen Neg (NEGATIVE) Urine Fentanyl Screen Neg (NEGATIVE) Urine Barbiturates Screen Neg (NEGATIVE) Urine Phencyclidine Screen Neg (NEGATIVE) Urine Amphetamines Screen Neg (NEGATIVE) Urine Benzodiazepines Screen Neg (NEGATIVE) Urine Cocaine Screen Neg (NEGATIVE) Urine Cannabinoids Screen Neg (NEGATIVE) White Blood Count 5.5 10^3/uL (4.4-10.8) Red Blood Count 5.82 10^6/uL (4.5-5.90) Hemoglobin 16.7 g/dL (13.5-17.5) Hematocrit 48.3 % (41.0-53.0) Mean Corpuscular Volume 83.1 fL (80.0-100.0) Mean Corpuscular Hemoglobin 28.7 pg (28.0-32.0) Mean Corpuscular Hemoglobin Concent 34.6 g/dL (32.0-36.0) Red Cell Distribution Width 13.5 % (11.8-14.3) Platelet Count 313 10^3/uL (140-450) Mean Platelet Volume 8.3 fL (6.9-10.8) Neutrophils (%) (Auto) 63.2 % (37.0-80.0) Lymphocytes (%) (Auto) 23.8 % (10.0-50.0) Monocytes (%) (Auto) 8.2 % (0.0-12.0) Eosinophils (%) (Auto) 4.2 % (0.0-7.0) Basophils (%) (Auto) 0.6 % (0.0-2.0) Neutrophils # (Auto) 3.5 10 ^3/uL (1.6-8.6) Lymphocytes # (Auto) 1.3 10 ^3/uL (0.4-5.4) Monocytes # (Auto) 0.5 10 ^3/uL (0-1.3) Eosinophils # (Auto) 0.2 10 ^3/uL (0-0.8) Basophils # (Auto) 0 10 ^3/uL (0-0.2) Nucleated Red Blood Cells 0.1 % Prothrombin Time 10.4 sec (9.3-11.8) Prothrombin Time INR 0.98 (0.9-1.15) Activated Partial Thromboplast Time 28.9 SEC (24.5-34.5) Sodium Level 140 mmol/L (136-145) Potassium Level 3.7 mmol/L (3.5-5.1) Chloride Level 106 mmol/L (98-107) Carbon Dioxide Level 24 mmol/L (20-31) Anion Gap 10 (5-15) Blood Urea Nitrogen 11 mg/dL (9-23) Creatinine 1.09 mg/dL (0.700-1.30) Glomerular Filtration Rate Calc 76 mL/min (>90) BUN/Creatinine Ratio 10.1 (10.0-20.0) Serum Glucose 149 mg/dL (74-106) Calcium Level 10.3 mg/dL (8.7-10.4) Magnesium Level 1.8 mg/dL (1.6-2.6) Triglycerides Level 219 mg/dL (< 150) Cholesterol Level 192 mg/dL (< 200) LDL Cholesterol 114 mg/dL (< 100) HDL Cholesterol 46 mg/dL (40-59) Total Bilirubin 1.8 mg/dL (0.2-1.0) Aspartate Amino Transferase (AST) 33 U/L (<34) Alanine Aminotransferase (ALT) 36 U/L (7-40) Alkaline Phosphatase 71 U/L (46-116) Total Protein 8.0 g/dL (5.7-8.2) Albumin 4.9 g/dL (3.2-4.8) Troponin I High Sensitivity 14 ng/L (</=54) Thyroid Stimulating Hormone (TSH) 0.56 uIU/mL (0.55-4.78) Test 09/08/24 08:35 Urine Color Light-yellow (Yellow) Urine Clarity Clear (Clear) Urine pH 5.5 (5.0-9.0) Urine Specific [place] 1.022 (1.001-1.035) Urine Protein Negative (Negative) Urine Ketones Negative (Negative) Urine Blood Negative /uL (Negative) Urine Nitrite Negative (Negative) Urine Bilirubin Negative (Negative) Urine Urobilinogen Normal mg/dL (Negative) Urine Leukocyte Esterase Negative /uL (Negative) Urine RBC 4 /hpf (0 - 3) Urine Microscopic WBC 3 /HPF (0-3) Urine Squamous Epithelial Cells None seen /hpf (<5) Urine Calcium Oxalate Crystals Few (None Seen) Urine Bacteria None seen /hpf (None Seen) Urine Glucose Normal mg/dL (Normal) Other Laboratory Tests 09/10/24 08:23 Brief Hx & Hospital Course: Bubba Marvin is a 64-year-old male with past medical history of hypertension, hyperlipidemia, CVA, and hypothyroidism, who came in with complaints of left arm numbness, tingling and weakness. Patient states he has been experiencing the episodes for about 3 days. He has also been experiencing intermittent headaches, and blurred vision. Patient's blood pressure has been elevated while in ER, he states he took his normal home medications. Past medical history: HTN, hyperipidemia, CVA and Hypothyroidism Hospital course: Patient was admitted at the line of hypertensive emergency leading to TIA. Due to multiple risk for the, previous history of ischemic CVA, and high score of ABCD2 (patient was moderate risk of developing stroke) the patient was treated as an inpatient. Head CT scan showed, hypodensity in the cerebellum (hypoattenuated area), suggesting chronic infarct or encephalomalacia with patchy periventricular and subcortical white matter hypoattenuation is nonspecific but may be related to small vessel ischemic disease. The patient was started on aspirin 81 mg daily, and pravastatin 40 mg daily. For high blood patient the patient was given amlodipine 10 mg daily, lisinopril 40 mg daily, hydrochlorothiazide 25 mg daily, in due to recurrent high blood pressure the patient was also given multiple dose of IV hydralazine urine and subsequently due to side effects of hydralazine, switched to clonidine p.r.n.. EKGs showed normal sinus rhythm with no significant ST or T-wave changes, echo showed LVH with mild diastolic dysfunction. Carotid Doppler performed showed no hemodynamically significant carotid artery disease. During hospital admission home medicine including levothyroxine we will continued. The patient was observed under telemetry for 48 hours, showed no significant event. On 09/10/2024, the patient was feeling better since admission and did not report any other episode of left-sided weakness or numbness. Discharge plan discussed with the patient the patient discharged home. Discharge plan: Follow up with the PCP within 1 week of the discharge. Follow up with the discharge Clinic within 1 week of the discharge. Tablet aspirin 81 mg daily Amlodipine 10 mg daily Continue home meds Operations or Procedures [facility] [id number] [place] [id number] Ph: [phone] DIAGNOSTIC IMAGING Diagnostic Imaging Report : [id number] Signed PATIENT: BUBBA MARVIN ACCT: [id number] UNIT: [id number] : 1960 [facility] AGE / SEX: 64 / M ADM STATUS: ADM IN SERVICE 37 ORDERING PHYSICIAN: KESHAV MEJIA PROCEDURE(s): [facility] - ECHO 2D MODE CARDIAC DOP REASON: TIA? ORDER NUMBER(s): [id number], ACCESSION NUMBER(s): [id number] APPROVED REPORT EXAM: Two-dimensional and M-mode echocardiogram with Doppler and color Doppler. Blood Pressure: 155/81 mmHg INDICATION CVA/TIA: RISK FACTORS Height: 5'7", Weight: 214 DIMENSIONS LVDd 4.2 (3.8-5.7cm) LA (2D) 3.4 (1.9-4.0cm) Aortic Root 3.1 (2.0- 3.7cm) LVDs 2.5 (2.5-4.0cm) LA (MM) (1.9-4.0cm) Aortic Cusp Exc 1.7 (1.5- 2.0cm) EF (%) 72.0 (55-70%) Rt. Atrium 2.8 (1.9-4.0cm) Asc. Aorta 3.3 cm IVSd 0.9 (0.7-1.1cm) RV (D) (1.8-2.4cm) PWd 1.1 (0.7-1.1cm) Mitral Valve Mitral Mitral Stenosis E wave 0.81m/s MV Mean GR. mmHg A wave 1.06m/s MV Peak GR. mmHg E/A ratio 0.8 2D MVA cm2 DECEL Time 238ms PRESS 1/2 Time ms Aortic Valve Aortic Valve Aortic Stenosis V1 1.22m/s AO Mean GR. 7mmHg V2 1.88m/s AO Peak GR. 14mmHg LVOT Diameter 2.0 (1.8-2.4cm) Doppler MONICA 2.04cm2 Pulmonic Valve V2 1.12m/s Other Information Quality : Technically Limited Rhythm : Technically limited study due to body habitus. Conclusion LVEF 60-65%, mild LVH. Mild diastolic dysfunction RV size and function normal SIGNED BY: ZORA SETHI MD SIGNED DATE/TIME: 09/10/24 [id number] CC: Condition at Discharge: Good Final Diagnosis/Problems List Hypertensive emergency leading to TIA Possible TIA History of ischemic stroke Small-vessel ischemic disease Obesity Hypertension Dyslipidemia Hypothyroidism Hyperbilirubinemia Discharge Disposition: Home Discharge Instruct/Medications Diet: Cardiac 2g Na,low cholest Activity: No Restrictions, As Tolerated Follow Up/Referral: Follow up with the PCP within 1 week of the discharge. Medications: Aspirin 81 mg daily Amlodipine 10 mg daily Continue home meds Discharge Statement: "Patient was advised to return to the ER or call 911 if any headaches, dizziness, shortness of breath, chest pain, abdominal pain, bleeding, fevers, or worsening of medical condition. Patient was counseled about treatment plan, medications, possible side effects, patientverbalized understanding. All questions were answered to the best of my ability. This discharge took greater then 30 minutes in planning, reviewing documentation, counseling the patient, and discussing with other team members." ASSESSMENT ASSESSMENT Assessment KESHAV MEJIA [facility] Sep 10, 2024 11:42
[2024-09-10 13:07] VITALS: BP 153/86; PULSE 68; RESP 16; TEMP 98.1; O2SAT 94
[2024-09-10 13:43] VITALS: BP 159/83; PULSE 68; RESP 18; TEMP 97.6; O2SAT 96
--- NOTE | 2024-09-10 17:07 | DVHSR ---
APPROVED REPORT EXAM: Two-dimensional and M-mode echocardiogram with Doppler and color Doppler. Blood Pressure: 155/81 mmHg INDICATION CVA/TIA: RISK FACTORS Height: 5'7", Weight: 214 DIMENSIONS LVDd4.2 (3.8-5.7cm)LA (2D)3.4 (1.9-4.0cm)Aortic Root3.1 (2.0-3.7cm) LVDs2.5 (2.5-4.0cm)LA (MM) (1.9-4.0cm)Aortic Cusp Exc1.7 (1.5-2.0cm) EF (%) 72.0 (55-70%)Rt. Atrium2.8 (1.9-4.0cm)Asc. Aorta3.3 cm IVSd0.9 (0.7-1.1cm)RV (D) (1.8-2.4cm) PWd1.1 (0.7-1.1cm) Mitral Valve MitralMitral Stenosis E wave0.81m/sMV Mean GR.mmHg A wave1.06m/sMV Peak GR.mmHg E/A ratio0.82D MVAcm2 DECEL [id number] 1/2 Timems Aortic Valve Aortic ValveAortic Stenosis V11.22m/Kai Mean GR.7mmHg V21.88m/Kai Peak GR.14mmHg LVOT Diameter2.0 (1.8-2.4cm)Doppler AVA2.04cm2 Pulmonic Valve V21.12m/s Other Information Quality : Technically LimitedRhythm : Technically limited study due to body habitus. Conclusion LVEF 60-65%, mild LVH. Mild diastolic dysfunction RV size and function normal
[2024-09-10] MEDS ORDERED: ENOXAPARIN SOD 40 MG/0.4 ML SYRINGE SC SCH (18:00)
== END 2024-09-10 17:30 | disposition home or self-care (01) | DRG 69 ==
LOC: ER 07:22 → OVERFLOW 13:03 → TELE-WESTW 19:29
PROVIDERS: ADMIT Student in an Organized Health Care Education/Training Program; ATTEND Emergency Medicine
DX: G45.9 Transient cerebral ischemic attack, unspecified (principal); I16.1 Hypertensive emergency; E03.9 Hypothyroidism, unspecified; E66.9 Obesity, unspecified; I10 Essential (primary) hypertension; I48.91 Unspecified atrial fibrillation; E78.5 Hyperlipidemia, unspecified; E80.6 Other disorders of bilirubin metabolism; Z68.29 Body mass index [BMI] 29.0-29.9, adult
CPT/HCPCS: 36415; 70450; 71045; 72125; 72141; 80048; 80053; 80061; 80307; 81001; 83735; 84443; 84484; 85025; 85610; 85730; 93005; 93306; 93886; 99291; G0378